=== PATIENT | male | born 1940 | race Caucasian/White ===

== ENCOUNTER 2023-02-21 20:33 | Emergency (ER) | payer MEDICARE ==
[2023-02-21] MEDS: Morphine 4 MG/ML VIAL IVPUSH ONE (20:50)
[2023-02-21] MEDS ORDERED: Sodium Chloride 0.9% 10 ML Syringe FLUSH PRN (20:51)
[2023-02-21 21:05] LABS: HEMATOCRIT 33.8 % (40.0-54.0); HEMOGLOBIN 11.7 g/dL (13.0-18.0); MEAN CORPUSCULAR HEMOGLOBIN 29.5 pg (27.0-32.0); MEAN CORPUSCULAR HGB CONC 34.6 g/dL (31.0-35.0); MEAN PLATELET VOLUME 9.7 fL (6.0-10.0); RED BLOOD CELL COUNT 3.97 M/uL (4.50-6.50); RED CELL DISTRIBUTION WIDTH 13.9 % (11.0-16.0); WHITE BLOOD CELL COUNT,WBC 19.1 K/uL (4.0-11.0)
[2023-02-21 21:19] LABS: ANION GAP 19.4 mmol/L (5.0-15.0); BUN/CREATININE RATIO 17.7 (6-25); CALCIUM 8.9 mg/dL (8.5-10.1); CARBON DIOXIDE,CO2 19.7 mmol/L (21.0-32.0); CREATININE 2.88 mg/dL (0.70-1.30); EST CRCL DRUG DOSING (CG) 15.92 mL/min; MAGNESIUM 2.1 mg/dL (1.8-2.4); PHOSPHORUS 4.5 mg/dL (2.5-4.9); POTASSIUM,K 5.1 mmol/L (3.5-5.1); TROPONIN I HIGH SENSITIVITY 8.5 pg/ml (<=60.4)
[2023-02-21] MEDS: fentaNYL 100 MCG/2 ML SDV IVPUSH STA (22:25)
[2023-02-21] MEDS: fentaNYL 100 MCG/2 ML SDV ONE (22:38)
[2023-02-21] MEDS: Sodium Chloride 0.9% 1,000 ML IV SCH (22:45)
[2023-02-22] MEDS: Morphine 4 MG/ML VIAL IVPUSH ONE ×2 (01:30→03:10)
[2023-02-22] MEDS: Morphine 4 MG/ML VIAL ONE (01:35)
[2023-02-22 03:25] VITALS: BP 149/63; PULSE 92
[2023-02-23] MEDS: Morphine 4 MG/ML VIAL ONE (08:14)
== END 2023-02-22 03:17 ==
LOC: LB.ED 20:33 → SUPCPDRO 20:33 → LB.ED 02-22 03:17
DX: S72.142A Displaced intertrochanteric fracture of left femur, initial encounter for closed fracture (principal); W01.0XXA Fall on same level from slipping, tripping and stumbling without subsequent striking against object, initial encounter
CPT/HCPCS: 36415; 73502-LT; 73552-LT; 73700-50; 80048; 83735; 84100; 84484; 85027; 96361; 96374; 96375; 96376; 99285-25; A0425; A0429; J2270; J3010; J7030

== ENCOUNTER 2023-02-25 08:13 | Inpatient (IN) | payer MEDICARE ==
[2023-02-25] MEDS ORDERED: Bisacodyl 10 MG Supp RECTAL PRN (10:31)
[2023-02-25] MEDS ORDERED: Melatonin 3 MG Tab PO PRN (10:35)
[2023-02-25] MEDS ORDERED: Nitroglycerin 0.4 MG Tab.SL SL PRN (10:44)
[2023-02-25] MEDS: Gabapentin 100 MG Cap PO SCH ×2 (15:28→19:39)
[2023-02-25] MEDS ORDERED: Tuberculin, PPD 5 Units/0.1 ML 1 ML MDV IDERM ONE (16:00)
[2023-02-25] MEDS: Insulin NPH/Insulin Regular,Human 70-30 100 Units/ML 3 ML Pen SQ SCH (18:02)
[2023-02-25] MEDS: Carvedilol 6.25 MG Tab PO SCH (18:07)
[2023-02-25] MEDS: Fish Oil/Omega-3 Fatty Acids 1 Gm Cap PO SCH (19:39)
[2023-02-25] MEDS: Rosuvastatin 20 MG Tab PO SCH (19:39)
[2023-02-26] MEDS: Acetaminophen/HYDROcodone 325-5 MG Tab PO PRN ×3 (02:04→19:12)
[2023-02-26] MEDS: Insulin NPH/Insulin Regular,Human 70-30 100 Units/ML 3 ML Pen SQ SCH ×2 (08:33→17:41)
[2023-02-26] MEDS: Aspirin 81 MG Tab.EC PO SCH (08:33)
[2023-02-26] MEDS: Fish Oil/Omega-3 Fatty Acids 1 Gm Cap PO SCH ×2 (08:33→19:12)
[2023-02-26] MEDS: Ferrous Sulfate 325 MG Tab PO SCH (08:33)
[2023-02-26] MEDS: Levothyroxine 75 MCG Tab PO SCH (08:33)
[2023-02-26] MEDS: Polyethylene Glycol 3350 Powder 17 GM Packet PO SCH (08:34)
[2023-02-26] MEDS: Gabapentin 100 MG Cap PO SCH ×3 (08:34→19:12)
[2023-02-26] MEDS: Enoxaparin 30 MG/0.3 ML Syringe SUBCUT SCH (08:34)
[2023-02-26] MEDS: Allopurinol 100 MG Tab PO SCH (08:35)
[2023-02-26] MEDS: Clopidogrel 75 MG Tab PO SCH (08:35)
[2023-02-26] MEDS: Cholecalciferol (Vitamin D3) 2,000 Unit Cap PO SCH (08:35)
[2023-02-26] MEDS: Pantoprazole 40 MG Tab.CR PO SCH (08:35)
[2023-02-26] MEDS: Ascorbic Acid 500 MG Tab PO SCH (08:35)
[2023-02-26] MEDS: Carvedilol 6.25 MG Tab PO SCH ×2 (08:37→16:47)
[2023-02-26] MEDS: amLODIPine 10 MG Tab PO SCH (08:38)
[2023-02-26] MEDS: Lisinopril 20 MG Tab PO SCH (08:38)
[2023-02-26] MEDS: Acetaminophen 325 MG Tab PO PRN (16:47)
[2023-02-26] MEDS: Rosuvastatin 20 MG Tab PO SCH (19:13)
[2023-02-27] MEDS: Acetaminophen 325 MG Tab PO PRN (00:14)
[2023-02-27] MEDS: Acetaminophen/HYDROcodone 325-5 MG Tab PO PRN ×4 (02:34→20:03)
[2023-02-27] MEDS: Levothyroxine 75 MCG Tab PO SCH (08:39)
[2023-02-27] MEDS: Insulin NPH/Insulin Regular,Human 70-30 100 Units/ML 3 ML Pen SQ SCH ×2 (08:40→17:26)
[2023-02-27] MEDS: Carvedilol 6.25 MG Tab PO SCH ×2 (08:40→17:27)
[2023-02-27] MEDS: Ferrous Sulfate 325 MG Tab PO SCH (08:40)
[2023-02-27] MEDS: Enoxaparin 30 MG/0.3 ML Syringe SUBCUT SCH (08:40)
[2023-02-27] MEDS: Fish Oil/Omega-3 Fatty Acids 1 Gm Cap PO SCH ×2 (08:40→20:03)
[2023-02-27] MEDS: Aspirin 81 MG Tab.EC PO SCH (08:40)
[2023-02-27] MEDS: Polyethylene Glycol 3350 Powder 17 GM Packet PO SCH (08:41)
[2023-02-27] MEDS: Lisinopril 20 MG Tab PO SCH (08:41)
[2023-02-27] MEDS: amLODIPine 10 MG Tab PO SCH (08:41)
[2023-02-27] MEDS: Gabapentin 100 MG Cap PO SCH ×3 (08:41→20:04)
[2023-02-27] MEDS: Clopidogrel 75 MG Tab PO SCH (08:41)
[2023-02-27] MEDS: Cholecalciferol (Vitamin D3) 2,000 Unit Cap PO SCH (08:42)
[2023-02-27] MEDS: Pantoprazole 40 MG Tab.CR PO SCH (08:42)
[2023-02-27] MEDS: Allopurinol 100 MG Tab PO SCH (08:42)
[2023-02-27] MEDS: Ascorbic Acid 500 MG Tab PO SCH (08:42)
[2023-02-27] MEDS: Rosuvastatin 20 MG Tab PO SCH (20:04)
[2023-02-28] MEDS: Levothyroxine 75 MCG Tab PO SCH (07:32)
[2023-02-28] MEDS: Ferrous Sulfate 325 MG Tab PO SCH (07:33)
[2023-02-28] MEDS: Aspirin 81 MG Tab.EC PO SCH (07:34)
[2023-02-28] MEDS: Allopurinol 100 MG Tab PO SCH (07:34)
[2023-02-28] MEDS: amLODIPine 10 MG Tab PO SCH (07:35)
[2023-02-28] MEDS: Polyethylene Glycol 3350 Powder 17 GM Packet PO SCH (07:36)
[2023-02-28] MEDS: Carvedilol 6.25 MG Tab PO SCH ×2 (07:36→17:19)
[2023-02-28] MEDS: Ascorbic Acid 500 MG Tab PO SCH (07:36)
[2023-02-28] MEDS: Gabapentin 100 MG Cap PO SCH ×3 (07:37→19:55)
[2023-02-28] MEDS: Fish Oil/Omega-3 Fatty Acids 1 Gm Cap PO SCH ×2 (07:37→19:55)
[2023-02-28] MEDS: Clopidogrel 75 MG Tab PO SCH (07:37)
[2023-02-28] MEDS: Pantoprazole 40 MG Tab.CR PO SCH (07:38)
[2023-02-28] MEDS: Lisinopril 20 MG Tab PO SCH (07:38)
[2023-02-28] MEDS: Enoxaparin 30 MG/0.3 ML Syringe SUBCUT SCH (07:39)
[2023-02-28] MEDS: Cholecalciferol (Vitamin D3) 2,000 Unit Cap PO SCH (07:39)
[2023-02-28] MEDS: Insulin NPH/Insulin Regular,Human 70-30 100 Units/ML 3 ML Pen SQ SCH ×2 (07:41→17:19)
[2023-02-28] MEDS: Rosuvastatin 20 MG Tab PO SCH (19:55)
[2023-03-01] MEDS: Levothyroxine 75 MCG Tab PO SCH (08:26)
[2023-03-01] MEDS: Carvedilol 6.25 MG Tab PO SCH ×2 (08:26→17:25)
[2023-03-01] MEDS: Ferrous Sulfate 325 MG Tab PO SCH (08:26)
[2023-03-01] MEDS: Fish Oil/Omega-3 Fatty Acids 1 Gm Cap PO SCH ×2 (08:26→19:25)
[2023-03-01] MEDS: amLODIPine 10 MG Tab PO SCH (08:27)
[2023-03-01] MEDS: Enoxaparin 30 MG/0.3 ML Syringe SUBCUT SCH (08:27)
[2023-03-01] MEDS: Insulin NPH/Insulin Regular,Human 70-30 100 Units/ML 3 ML Pen SQ SCH ×2 (08:27→17:25)
[2023-03-01] MEDS: Clopidogrel 75 MG Tab PO SCH (08:27)
[2023-03-01] MEDS: Gabapentin 100 MG Cap PO SCH ×3 (08:27→19:25)
[2023-03-01] MEDS: Polyethylene Glycol 3350 Powder 17 GM Packet PO SCH (08:27)
[2023-03-01] MEDS: Aspirin 81 MG Tab.EC PO SCH (08:27)
[2023-03-01] MEDS: Ascorbic Acid 500 MG Tab PO SCH (08:28)
[2023-03-01] MEDS: Cholecalciferol (Vitamin D3) 2,000 Unit Cap PO SCH (08:28)
[2023-03-01] MEDS: Lisinopril 20 MG Tab PO SCH (08:28)
[2023-03-01] MEDS: Allopurinol 100 MG Tab PO SCH (08:28)
[2023-03-01] MEDS: Pantoprazole 40 MG Tab.CR PO SCH (08:28)
[2023-03-01] MEDS: Acetaminophen 325 MG Tab PO PRN (14:25)
[2023-03-01] MEDS: Rosuvastatin 20 MG Tab PO SCH (19:25)
[2023-03-01] MEDS ORDERED: Calcium Carbonate 500 MG Tab.Chew ONE (21:06)
[2023-03-01] MEDS ORDERED: Calcium Carbonate 500 MG Tab.Chew PO PRN (21:09)
[2023-03-02] MEDS: Aspirin 81 MG Tab.EC PO SCH (08:09)
[2023-03-02] MEDS: Levothyroxine 75 MCG Tab PO SCH (08:09)
[2023-03-02] MEDS: Ferrous Sulfate 325 MG Tab PO SCH (08:09)
[2023-03-02] MEDS: Carvedilol 6.25 MG Tab PO SCH ×2 (08:09→17:41)
[2023-03-02] MEDS: Fish Oil/Omega-3 Fatty Acids 1 Gm Cap PO SCH ×2 (08:09→19:04)
[2023-03-02] MEDS: Polyethylene Glycol 3350 Powder 17 GM Packet PO SCH (08:10)
[2023-03-02] MEDS: Enoxaparin 30 MG/0.3 ML Syringe SUBCUT SCH (08:10)
[2023-03-02] MEDS: Gabapentin 100 MG Cap PO SCH ×3 (08:10→19:04)
[2023-03-02] MEDS: Ascorbic Acid 500 MG Tab PO SCH (08:11)
[2023-03-02] MEDS: amLODIPine 10 MG Tab PO SCH (08:11)
[2023-03-02] MEDS: Pantoprazole 40 MG Tab.CR PO SCH (08:11)
[2023-03-02] MEDS: Lisinopril 20 MG Tab PO SCH (08:11)
[2023-03-02] MEDS: Clopidogrel 75 MG Tab PO SCH (08:11)
[2023-03-02] MEDS: Cholecalciferol (Vitamin D3) 2,000 Unit Cap PO SCH (08:12)
[2023-03-02] MEDS: Allopurinol 100 MG Tab PO SCH (08:12)
[2023-03-02] MEDS: Insulin NPH/Insulin Regular,Human 70-30 100 Units/ML 3 ML Pen SQ SCH ×2 (08:13→17:42)
[2023-03-02] MEDS: Acetaminophen 325 MG Tab PO PRN ×3 (09:32→19:04)
[2023-03-02] MEDS: Rosuvastatin 20 MG Tab PO SCH (19:04)
[2023-03-03] MEDS: Acetaminophen 325 MG Tab PO PRN ×2 (02:55→13:21)
[2023-03-03] MEDS: Levothyroxine 75 MCG Tab PO SCH (08:30)
[2023-03-03] MEDS: Aspirin 81 MG Tab.EC PO SCH (08:30)
[2023-03-03] MEDS: Carvedilol 6.25 MG Tab PO SCH ×2 (08:30→17:16)
[2023-03-03] MEDS: Insulin NPH/Insulin Regular,Human 70-30 100 Units/ML 3 ML Pen SQ SCH ×2 (08:30→17:16)
[2023-03-03] MEDS: Ferrous Sulfate 325 MG Tab PO SCH (08:30)
[2023-03-03] MEDS: Fish Oil/Omega-3 Fatty Acids 1 Gm Cap PO SCH ×2 (08:30→20:10)
[2023-03-03] MEDS: amLODIPine 10 MG Tab PO SCH (08:31)
[2023-03-03] MEDS: Enoxaparin 30 MG/0.3 ML Syringe SUBCUT SCH (08:31)
[2023-03-03] MEDS: Polyethylene Glycol 3350 Powder 17 GM Packet PO SCH (08:31)
[2023-03-03] MEDS: Lisinopril 20 MG Tab PO SCH (08:31)
[2023-03-03] MEDS: Gabapentin 100 MG Cap PO SCH ×3 (08:31→20:11)
[2023-03-03] MEDS: Clopidogrel 75 MG Tab PO SCH (08:31)
[2023-03-03] MEDS: Pantoprazole 40 MG Tab.CR PO SCH (08:32)
[2023-03-03] MEDS: Cholecalciferol (Vitamin D3) 2,000 Unit Cap PO SCH (08:32)
[2023-03-03] MEDS: Ascorbic Acid 500 MG Tab PO SCH (08:32)
[2023-03-03] MEDS: Allopurinol 100 MG Tab PO SCH (08:32)
[2023-03-03] MEDS: Rosuvastatin 20 MG Tab PO SCH (20:11)
[2023-03-04] MEDS: Allopurinol 100 MG Tab PO SCH (08:26)
[2023-03-04] MEDS: Levothyroxine 75 MCG Tab PO SCH (08:26)
[2023-03-04] MEDS: Cholecalciferol (Vitamin D3) 2,000 Unit Cap PO SCH (08:26)
[2023-03-04] MEDS: Clopidogrel 75 MG Tab PO SCH (08:27)
[2023-03-04] MEDS: Gabapentin 100 MG Cap PO SCH ×3 (08:27→19:43)
[2023-03-04] MEDS: amLODIPine 10 MG Tab PO SCH (08:27)
[2023-03-04] MEDS: Aspirin 81 MG Tab.EC PO SCH (08:28)
[2023-03-04] MEDS: Carvedilol 6.25 MG Tab PO SCH ×2 (08:28→17:24)
[2023-03-04] MEDS: Pantoprazole 40 MG Tab.CR PO SCH (08:28)
[2023-03-04] MEDS: Ascorbic Acid 500 MG Tab PO SCH (08:29)
[2023-03-04] MEDS: Ferrous Sulfate 325 MG Tab PO SCH (08:29)
[2023-03-04] MEDS: Lisinopril 20 MG Tab PO SCH (08:29)
[2023-03-04] MEDS: Polyethylene Glycol 3350 Powder 17 GM Packet PO SCH (08:30)
[2023-03-04] MEDS: Enoxaparin 30 MG/0.3 ML Syringe SUBCUT SCH (08:30)
[2023-03-04] MEDS: Insulin NPH/Insulin Regular,Human 70-30 100 Units/ML 3 ML Pen SQ SCH ×2 (08:30→17:25)
[2023-03-04] MEDS: Fish Oil/Omega-3 Fatty Acids 1 Gm Cap PO SCH ×2 (08:30→19:43)
[2023-03-04] MEDS: Rosuvastatin 20 MG Tab PO SCH (19:42)
[2023-03-04] MEDS: Acetaminophen 325 MG Tab PO PRN (21:41)
[2023-03-05] MEDS: Enoxaparin 30 MG/0.3 ML Syringe SUBCUT SCH (07:53)
[2023-03-05] MEDS: Fish Oil/Omega-3 Fatty Acids 1 Gm Cap PO SCH ×2 (07:55→20:24)
[2023-03-05] MEDS: Levothyroxine 75 MCG Tab PO SCH (07:56)
[2023-03-05] MEDS: Allopurinol 100 MG Tab PO SCH (07:56)
[2023-03-05] MEDS: Carvedilol 6.25 MG Tab PO SCH ×2 (07:57→17:45)
[2023-03-05] MEDS: Pantoprazole 40 MG Tab.CR PO SCH (07:59)
[2023-03-05] MEDS: Gabapentin 100 MG Cap PO SCH ×3 (07:59→20:24)
[2023-03-05] MEDS: Ferrous Sulfate 325 MG Tab PO SCH (07:59)
[2023-03-05] MEDS: Aspirin 81 MG Tab.EC PO SCH (07:59)
[2023-03-05] MEDS: amLODIPine 10 MG Tab PO SCH (08:00)
[2023-03-05] MEDS: Clopidogrel 75 MG Tab PO SCH (08:00)
[2023-03-05] MEDS: Cholecalciferol (Vitamin D3) 2,000 Unit Cap PO SCH (08:00)
[2023-03-05] MEDS: Ascorbic Acid 500 MG Tab PO SCH (08:01)
[2023-03-05] MEDS: Lisinopril 20 MG Tab PO SCH (08:01)
[2023-03-05] MEDS: Polyethylene Glycol 3350 Powder 17 GM Packet PO SCH (08:02)
[2023-03-05] MEDS: Insulin NPH/Insulin Regular,Human 70-30 100 Units/ML 3 ML Pen SQ SCH ×2 (08:09→17:48)
[2023-03-05] MEDS: Rosuvastatin 20 MG Tab PO SCH (20:24)
[2023-03-05] MEDS: Acetaminophen 325 MG Tab PO PRN (21:18)
[2023-03-06] MEDS: Carvedilol 6.25 MG Tab PO SCH ×2 (08:20→17:03)
[2023-03-06] MEDS: Levothyroxine 75 MCG Tab PO SCH (08:20)
[2023-03-06] MEDS: Gabapentin 100 MG Cap PO SCH ×3 (08:21→20:37)
[2023-03-06] MEDS: Insulin NPH/Insulin Regular,Human 70-30 100 Units/ML 3 ML Pen SQ SCH ×2 (08:21→17:04)
[2023-03-06] MEDS: Enoxaparin 30 MG/0.3 ML Syringe SUBCUT SCH (08:21)
[2023-03-06] MEDS: Fish Oil/Omega-3 Fatty Acids 1 Gm Cap PO SCH ×2 (08:21→20:37)
[2023-03-06] MEDS: Ferrous Sulfate 325 MG Tab PO SCH (08:21)
[2023-03-06] MEDS: Aspirin 81 MG Tab.EC PO SCH (08:21)
[2023-03-06] MEDS: Polyethylene Glycol 3350 Powder 17 GM Packet PO SCH (08:21)
[2023-03-06] MEDS: Pantoprazole 40 MG Tab.CR PO SCH (08:22)
[2023-03-06] MEDS: Lisinopril 20 MG Tab PO SCH (08:22)
[2023-03-06] MEDS: Ascorbic Acid 500 MG Tab PO SCH (08:22)
[2023-03-06] MEDS: Clopidogrel 75 MG Tab PO SCH (08:22)
[2023-03-06] MEDS: Allopurinol 100 MG Tab PO SCH (08:22)
[2023-03-06] MEDS: amLODIPine 10 MG Tab PO SCH (08:22)
[2023-03-06] MEDS: Cholecalciferol (Vitamin D3) 2,000 Unit Cap PO SCH (08:22)
[2023-03-06] MEDS: Acetaminophen 325 MG Tab PO PRN (20:37)
[2023-03-06] MEDS: Rosuvastatin 20 MG Tab PO SCH (20:37)
[2023-03-07] MEDS: Ferrous Sulfate 325 MG Tab PO SCH (07:28)
[2023-03-07] MEDS: Levothyroxine 75 MCG Tab PO SCH (07:28)
[2023-03-07] MEDS: Aspirin 81 MG Tab.EC PO SCH (07:29)
[2023-03-07] MEDS: Fish Oil/Omega-3 Fatty Acids 1 Gm Cap PO SCH ×2 (07:29→20:31)
[2023-03-07] MEDS: Carvedilol 6.25 MG Tab PO SCH ×2 (07:29→17:30)
[2023-03-07] MEDS: Gabapentin 100 MG Cap PO SCH ×3 (07:30→20:31)
[2023-03-07] MEDS: amLODIPine 10 MG Tab PO SCH (07:30)
[2023-03-07] MEDS: Clopidogrel 75 MG Tab PO SCH (07:30)
[2023-03-07] MEDS: Enoxaparin 30 MG/0.3 ML Syringe SUBCUT SCH (07:30)
[2023-03-07] MEDS: Insulin NPH/Insulin Regular,Human 70-30 100 Units/ML 3 ML Pen SQ SCH ×2 (07:30→17:31)
[2023-03-07] MEDS: Polyethylene Glycol 3350 Powder 17 GM Packet PO SCH (07:30)
[2023-03-07] MEDS: Lisinopril 20 MG Tab PO SCH (07:31)
[2023-03-07] MEDS: Pantoprazole 40 MG Tab.CR PO SCH (07:31)
[2023-03-07] MEDS: Ascorbic Acid 500 MG Tab PO SCH (07:31)
[2023-03-07] MEDS: Cholecalciferol (Vitamin D3) 2,000 Unit Cap PO SCH (07:31)
[2023-03-07] MEDS: Allopurinol 100 MG Tab PO SCH (07:31)
[2023-03-07] MEDS: Acetaminophen 325 MG Tab PO PRN (20:31)
[2023-03-07] MEDS: Rosuvastatin 20 MG Tab PO SCH (20:31)
[2023-03-08] MEDS: Cholecalciferol (Vitamin D3) 2,000 Unit Cap PO SCH (07:55)
[2023-03-08] MEDS: Allopurinol 100 MG Tab PO SCH (07:55)
[2023-03-08] MEDS: Levothyroxine 75 MCG Tab PO SCH (07:56)
[2023-03-08] MEDS: Aspirin 81 MG Tab.EC PO SCH (07:56)
[2023-03-08] MEDS: Carvedilol 6.25 MG Tab PO SCH ×2 (07:56→17:11)
[2023-03-08] MEDS: amLODIPine 10 MG Tab PO SCH (07:56)
[2023-03-08] MEDS: Pantoprazole 40 MG Tab.CR PO SCH (07:57)
[2023-03-08] MEDS: Gabapentin 100 MG Cap PO SCH ×3 (07:57→20:17)
[2023-03-08] MEDS: Ascorbic Acid 500 MG Tab PO SCH (07:57)
[2023-03-08] MEDS: Fish Oil/Omega-3 Fatty Acids 1 Gm Cap PO SCH ×2 (07:57→20:17)
[2023-03-08] MEDS: Lisinopril 20 MG Tab PO SCH (07:58)
[2023-03-08] MEDS: Clopidogrel 75 MG Tab PO SCH (07:58)
[2023-03-08] MEDS: Insulin NPH/Insulin Regular,Human 70-30 100 Units/ML 3 ML Pen SQ SCH ×2 (07:59→17:11)
[2023-03-08] MEDS: Polyethylene Glycol 3350 Powder 17 GM Packet PO SCH (07:59)
[2023-03-08] MEDS: Enoxaparin 30 MG/0.3 ML Syringe SUBCUT SCH (07:59)
[2023-03-08] MEDS: Ferrous Sulfate 325 MG Tab PO SCH (08:01)
[2023-03-08] MEDS: Rosuvastatin 20 MG Tab PO SCH (20:18)
[2023-03-08] MEDS: Acetaminophen 325 MG Tab PO PRN (20:18)
[2023-03-09] MEDS: Clopidogrel 75 MG Tab PO SCH (08:01)
[2023-03-09] MEDS: Aspirin 81 MG Tab.EC PO SCH (08:01)
[2023-03-09] MEDS: Cholecalciferol (Vitamin D3) 2,000 Unit Cap PO SCH (08:01)
[2023-03-09] MEDS: Gabapentin 100 MG Cap PO SCH (08:01)
[2023-03-09] MEDS: Ascorbic Acid 500 MG Tab PO SCH (08:02)
[2023-03-09] MEDS: Ferrous Sulfate 325 MG Tab PO SCH (08:02)
[2023-03-09] MEDS: Levothyroxine 75 MCG Tab PO SCH (08:03)
[2023-03-09] MEDS: amLODIPine 10 MG Tab PO SCH (08:03)
[2023-03-09] MEDS: Fish Oil/Omega-3 Fatty Acids 1 Gm Cap PO SCH (08:03)
[2023-03-09] MEDS: Pantoprazole 40 MG Tab.CR PO SCH (08:04)
[2023-03-09] MEDS: Allopurinol 100 MG Tab PO SCH (08:04)
[2023-03-09] MEDS: Carvedilol 6.25 MG Tab PO SCH (08:05)
[2023-03-09] MEDS: Lisinopril 20 MG Tab PO SCH (08:05)
[2023-03-09] MEDS: Insulin NPH/Insulin Regular,Human 70-30 100 Units/ML 3 ML Pen SQ SCH (08:06)
[2023-03-09] MEDS: Polyethylene Glycol 3350 Powder 17 GM Packet PO SCH (08:06)
[2023-03-09] MEDS: Enoxaparin 30 MG/0.3 ML Syringe SUBCUT SCH (08:07)
== END 2023-03-09 16:15 | disposition home or self-care (01) | DRG 561 ==
LOC: LB.MS 14:06
PROVIDERS: ADMIT Surgery; ATTEND Surgery
DX: Z47.32 Aftercare following explantation of hip joint prosthesis (principal); I12.9 Hypertensive chronic kidney disease with stage 1 through stage 4 chronic kidney disease, or unspecified chronic kidney disease; E11.22 Type 2 diabetes mellitus with diabetic chronic kidney disease; N18.9 Chronic kidney disease, unspecified; E11.40 Type 2 diabetes mellitus with diabetic neuropathy, unspecified; I25.10 Atherosclerotic heart disease of native coronary artery without angina pectoris; Z95.5 Presence of coronary angioplasty implant and graft; Z98.890 Other specified postprocedural states; Z79.4 Long term (current) use of insulin; Z79.899 Other long term (current) drug therapy
CPT/HCPCS: 82947; 86580; 97110-GP; 97116-GP; 97161-GP; 97165-GO; 97530-GO; 97530-GP; 97535-GO; 99304; 99307; 99315; A9270-GY; J1650